=== PATIENT | female | born 1985 | race Caucasian/White ===

== ENCOUNTER 2016-10-16 17:10 | Inpatient (IN) | payer BC ==
[~2016-10-16] VITALS: Ht 149.9 cm; Wt 61.4 kg
[2016-10-16] VITALS (18 sets, daily range): BP systolic 92–119; BP diastolic 54–72; PULSE 62–84; TEMP 97.3–99.5
[~2016-10-16 17:10] MED LIST: ALLEGRA30 MG; FLAGYL500 MG PO; VALTREX 50500 MG/TAB
[2016-10-16] MEDS ORDERED: PRENATAL 191 TAB PO (17:45)
[2016-10-16] MEDS ORDERED: PROBIOTIC FORMU1 CAP PO (17:46)
[2016-10-16 20:17] LABS: BASO # 0.1 (0.0-0.2); BASO % 0.5 % (0.0-2.0); EOS # 0.1 (0.0-0.7); EOS % 1.1 % (0-4.0); GRAN # 9.5 (1.4-6.5); GRAN % 71.9 % (42.2-75.2); LYMPH # 2.5 (1.2-3.4); LYMPH % 18.9 % (20.0-51.0); MEAN CELL VOLUME 83 fl (80.0-100.0); MEAN CORPUSCULAR HGB CONC 32 g/dl (33.0-37.0); MEAN PLATELET VOLUME 11.3 fl (7.4-10.4); MONO % 7.2 % (1.7-9.3); PLATELET COUNT 223 K/mm3 (130-400); RED BLOOD COUNT 4.04 M/mm3 (4.10-5.30); REDCELL DISTRIBUTION WIDTH-CV 12.9 % (11.5-14.5); WHITE BLOOD COUNT 13.2 K/mm3 (4.8-10.8)
[2016-10-16 20:18] LABS: HEMATOCRIT 33.5 % (37.0-47.0); HEMOGLOBIN 10.7 g/dl (12.5-16.0); MEAN CORPUSCULAR HEMOGLOBIN 26 pg (27.0-31.0)
[2016-10-17] VITALS (64 sets, daily range): BP systolic 88–140; BP diastolic 50–85; PULSE 56–97; TEMP 97.6–99.2
[2016-10-18] VITALS: BP 110/66; PULSE 73; TEMP 98.2
[2016-10-18 05:43] LABS: HEMATOCRIT 31.4 % (37.0-47.0); HEMOGLOBIN 10.1 g/dl (12.5-16.0)
[2016-10-18 08:15] VITALS: BP 108/64; PULSE 79; TEMP 97.5
[2016-10-18] MEDS ORDERED: IBU800 M1 PO (10:20)
[2016-10-18] MEDS ORDERED: PERCOCET 325 MG1 TA2 PO (10:20)
[2016-10-18 17:45] VITALS: BP 105/66; PULSE 79; TEMP 97.7
[2016-10-18 20:07] VITALS: BP 113/73; PULSE 69; TEMP 98.7
[2016-10-19 08:20] VITALS: BP 125/72; PULSE 75; TEMP 98
[2016-10-19 16:00] VITALS: BP 117/73; PULSE 78; TEMP 98.5
== END 2016-10-19 18:35 | disposition home or self-care (01) | DRG 766 ==
LOC: LDRO 17:10 → LDR 17:40 → OB 17:40
PROVIDERS: Obstetrics & Gynecology
PROC: 10D00Z1 Extraction of Products of Conception, Low, Open Approach (ICD-10-PCS; principal; 2016-10-16)
DX: O76 Abnormality in fetal heart rate and rhythm complicating labor and delivery (principal); O69.1XX0 Labor and delivery complicated by cord around neck, with compression, not applicable or unspecified; Z3A.39 39 weeks gestation of pregnancy; Z37.0 Single live birth
CPT/HCPCS: J0690; J1885; J2270; J2400; J2405; J2550; J2590; J2704; J7120

== ENCOUNTER 2019-01-31 09:57 | Inpatient (IN) | payer BC ==
[2019-01-31] VITALS (18 sets, daily range): BP systolic 90–116; BP diastolic 57–73; PULSE 57–87; TEMP 96.5–98.6
[~2019-01-31] VITALS: Ht 152.4 cm; Wt 62.7 kg
[~2019-01-31 09:57] MED LIST changes: +IBU800 M1 PO; +PERCOCET 325 MG1 TA2 PO; +PRENATAL 191 TAB PO; +PROBIOTIC FORMU1 CAP PO
[2019-01-31 10:53] LABS: BASO % 0.3 % (0.0-2.0); EOS # 0.2 (0.0-0.7); EOS % 1.5 % (0-4.0); GRAN # 8.9 (1.4-6.5); GRAN % 73.3 % (42.2-75.2); HEMOGLOBIN 10.6 g/dl (12.5-16.0); LYMPH # 2.2 (1.2-3.4); LYMPH % 17.9 % (20.0-51.0); MEAN CELL VOLUME 82 fl (80.0-100.0); MEAN CORPUSCULAR HEMOGLOBIN 26 pg (27.0-31.0); MEAN CORPUSCULAR HGB CONC 32 g/dl (33.0-37.0); MEAN PLATELET VOLUME 11.1 fl (7.4-10.4); MONO # 0.8 (0.1-0.6); MONO % 6.3 % (1.7-9.3); PLATELET COUNT 194 K/mm3 (130-400); RED BLOOD COUNT 4.11 M/mm3 (4.10-5.30); REDCELL DISTRIBUTION WIDTH-CV 13.5 % (11.5-14.5)
[2019-01-31 11:01] LABS: HEMATOCRIT 33.7 % (37.0-47.0)
--- NOTE | 2019-01-31 11:17 | NUR ---
1030 PATIENT HERE FOR REPEAT C SCRTION. IV STRTED IN LEFT HAND AND IVF RUNNING. ASSESSMENT COMPLETED, VS WNL. ALL CONSENTS SIGNED. PATIENT READY FOR OR DENIES NEEDS
[2019-02-01 00:15] VITALS: BP 102/64; PULSE 59; TEMP 98.2
[2019-02-01 03:50] VITALS: BP 105/56; PULSE 64; TEMP 98.5
[2019-02-01 07:15] VITALS: BP 118/56; PULSE 69; TEMP 97.9
[2019-02-01] MEDS ORDERED: IBU800 M1 PO (07:47)
[2019-02-01] MEDS ORDERED: PERCOCET 325 MG1 TA2 PO (07:47)
[2019-02-01 16:10] VITALS: BP 104/60; PULSE 60; TEMP 98.2
[2019-02-01 20:00] VITALS: BP 119/78; PULSE 70; TEMP 98.2
[2019-02-02 08:30] VITALS: BP 111/70; PULSE 69; TEMP 97.2
[2019-02-02] MEDS ORDERED: NORCO 325 MG-51 TAB PO (11:13)
[2019-02-02 15:30] VITALS: BP 117/69; PULSE 76; TEMP 98
[2019-02-02 20:30] VITALS: BP 113/73; PULSE 67; TEMP 97.9
[2019-02-03 08:10] VITALS: BP 118/75; PULSE 78; TEMP 98.5
[2019-02-03] MEDS ORDERED: TAMIFLU 75MG75 MG PO (10:50)
== END 2019-02-03 12:55 | disposition home or self-care (01) | DRG 786 ==
LOC: OB 09:57 → LDR 12:11 → OB 02-01 15:16
PROVIDERS: ADMIT Student in an Organized Health Care Education/Training Program
PROC: 10D00Z1 Extraction of Products of Conception, Low, Open Approach (ICD-10-PCS; principal; 2019-01-31)
DX: O34.211 Maternal care for low transverse scar from previous cesarean delivery (principal); O75.3 Other infection during labor; O98.52 Other viral diseases complicating childbirth; O99.52 Diseases of the respiratory system complicating childbirth; B00.9 Herpesviral infection, unspecified; J45.909 Unspecified asthma, uncomplicated; K21.9 Gastro-esophageal reflux disease without esophagitis; B96.89 Other specified bacterial agents as the cause of diseases classified elsewhere; Z3A.39 39 weeks gestation of pregnancy; Z37.0 Single live birth
CPT/HCPCS: J0690; J1885; J2175; J2370; J2405; J2590; J3010; J7120

== ENCOUNTER → 2019-02-08 | Outpatient (CLI) | payer BC ==
[~2019-02-08] MED LIST changes: +NORCO 325 MG-51 TAB PO; +TAMIFLU 75MG75 MG PO
--- NOTE | 2019-02-08 14:00 | NUR ---
Pt, Oma Rodgers, presents for outpatient consult with eight day old baby girl, Jelani Rodgers, to evaluate milk supply, 's weight, and latching. Jelani was born by repeat c/section on [birth year] and weighed 7#3.3oz (3270 gms). She initially nursed well, but by time of discharge pt was unsure she was nursing very actively. At time of discharge Jelani weighed 6#9oz, and she was seen by Dr. Cardona the following day and her weight was 6#10.5oz. Today Jelani weighs 6#7.4oz (2930 gms) for a 10% loss from . The last 24 hours she has had 3 small, yellow, seedy stools and four voids. Pt states she had a feeling of milk supply increasing at about 4-5 days of age. She appears mildly jaundiced. Pt is able to latch Jelani adequately, but also advised on ways to keep Jelani's jaw open wider with latch and flange the lips out after latched. Jelani has a couple minutes of irregular swallows at the start of each latch but spends a lot of the time sleeping. After 15 minutes of nursing bilaterally Jelani had a weight gain of 0.8oz (24 gms). Expected intake at this age and weight is 20oz per 24 hours; 2-2.5oz per feeding if eating 8-10 times daily. Pt offered option to supplement via Supplemental Nursing System, but prefers bottle feeding. Suggestions and handouts provided re: milk production including herbal supplements, pumping after . POC: Breastfeed q 2-3 hours, supplement 1-1.5oz after each feeding, follow with pumping after each feeding, saving milk for supplement. F/U: Pt states Jelani has an appointment with Dr. Cardona Monday. requests pt to report weight and discuss follow up options after that appt. Questions invited and answered.
== END ==
LOC: OLC 13:16
DX: Z39.1 Encounter for care and examination of lactating mother (principal); Z71.89 Other specified counseling

== ENCOUNTER → 2022-05-04 | Outpatient (CLI) | payer BC | LOC: MC.RAD 14:10 | DX: Z12.31 Encounter for screening mammogram for malignant neoplasm of breast (principal); N64.89 Other specified disorders of breast ==

== ENCOUNTER → 2022-05-05 | Outpatient (CLI) | payer BC | LOC: MC.RAD 10:23 | DX: N64.89 Other specified disorders of breast (principal) ==

== ENCOUNTER 2023-03-13 02:26 | Emergency (ER) | payer BC ==
[~2023-03-13] VITALS: Ht 152.4 cm; Wt 45.5 kg
[2023-03-13 02:27] VITALS: TEMP 97.7
[2023-03-13] MEDS ORDERED: Loperamide 2 MG CAP PO ONE (02:30)
[2023-03-13] MEDS ORDERED: Dicyclomine 10 MG CAP PO ONE (02:30)
[2023-03-13] MEDS ORDERED: NS 1,000 ML IV ONE (02:30)
[2023-03-13] MEDS ORDERED: Ondansetron 4 MG/2 ML VIAL IV ONE (02:30)
[2023-03-13] MEDS ORDERED: droPERidol 2.5 MG/ML 2 ML VIAL IV ONE (03:00)
[2023-03-13 03:09] LABS: ALANINE AMINOTRANSFERASE 8 U/L (0-55); ALKALINE PHOSPHATASE 47 U/L (40-150); ANION GAP 12 mmol/L (7-16); AST,SGOT 22 U/L (5-34); BILIRUBIN,TOTAL 0.8 mg/dL (0.2-1.2); BLOOD UREA NITROGEN 14 mg/dL (7-19); CALCIUM 9.6 mg/dL (8.4-10.2); CARBON DIOXIDE 18 mmol/L (22-29); CHLORIDE 109 mmol/L (98-107); CREATININE, serum 0.83 mg/dL (0.57-1.11); GLUCOSE 113 mg/dL (70-99); LIPASE 18 U/L (8-78); POTASSIUM 4.6 mmol/L (3.5-4.5); SODIUM 139 mmol/L (136-145); TOTAL PROTEIN 7.2 gm/dL (6.2-8.1)
[2023-03-13 03:13] LABS: BASO % 0.3 % (0.0-2.0); EOS # 0.2 K/mm3 (0.0-0.7); EOS % 1.8 % (0.0-4.0); GRAN # 7.2 K/mm3 (1.4-6.5); GRAN % 83.5 % (42.2-75.2); HEMATOCRIT 37.9 % (37.0-47.0); HEMOGLOBIN 12.8 g/dl (12.5-16.0); LYMPH # 0.7 K/mm3 (1.2-3.4); LYMPH % 8.1 % (20.0-51.0); MEAN CELL VOLUME 89 fl (80.0-100.0); MEAN CORPUSCULAR HEMOGLOBIN 30 pg (27-31); MEAN CORPUSCULAR HGB CONC 34 g/dl (33.0-37.0); MEAN PLATELET VOLUME 9.9 fl (7.4-10.4); MONO # 0.5 K/mm3 (0.1-0.6); MONO % 6.2 % (1.7-9.3); PLATELET COUNT 212 K/mm3 (130-400); RED BLOOD COUNT 4.25 M/mm3 (4.10-5.30); REDCELL DISTRIBUTION WIDTH-CV 12.1 % (11.5-14.5)
[2023-03-13 03:20] LABS: HCG,QUANTITATIVE < 1 mIU/mL
[2023-03-13 03:28] LABS: C-REACTIVE PROTEIN 0.12 mg/dL (0.00-0.50)
[2023-03-13] MEDS ORDERED: D5NS 1,000 ML IV ONE (04:15)
[2023-03-13 04:53] LABS: COLLECTION METHOD CLEAN CATCH
[2023-03-13] MEDS ORDERED: ZOFRAN ODT4 MG PO (05:00)
[2023-03-13] MEDS ORDERED: BENTYL 20MG20 MG/TAB PO (05:00)
[2023-03-13] MEDS ORDERED: ANTI-DIARRHEAL2 MG PO (05:00)
[2023-03-13 05:06] LABS: PH 5.5 (5.0-8.5); URINE APPEARANCE Clear (CLEAR/HAZY); URINE COLOR YELLOW (YELLOW); URINE GLUCOSE 2+ (NEGATIVE); URINE KETONE 2+ (NEGATIVE); URINE PROTEIN(semi-quant) 1+ (NEGATIVE)
[2023-03-13 05:07] LABS: MUCOUS Present (NOT PRESENT); URINE BACTERIA Rare /hpf (NONE SEEN); URINE BLOOD Negative (NEGATIVE); URINE NITRATE Negative (NEGATIVE); URINE RBC 0-2 /hpf (0-2); URINE UROBILINOGEN 0.2 E.U/dL (0.2-1.0)
[2023-03-13 05:32] VITALS: BP 92/56; PULSE 96
== END 2023-03-13 05:32 | disposition home or self-care (01) ==
LOC: COL.ER 02:26
PROVIDERS: Emergency Medicine
DX: E86.0 Dehydration (principal); R11.2 Nausea with vomiting, unspecified; R19.7 Diarrhea, unspecified; R10.11 Right upper quadrant pain; R10.12 Left upper quadrant pain
CPT/HCPCS: J1790; J2405; J7030; J7042